=== PATIENT | female | born 1945 | race Caucasian/White ===

== ENCOUNTER 2024-03-24 09:21 | Inpatient (IN) | payer MEDICARE, MEDICAID ==
[~2024-03-24] VITALS: Ht 152.4 cm; Wt 55.0 kg
[2024-03-24 10:40] LABS: Basophils # (auto) 0 10 ^3/uL (0-0.2); Basophils % (auto) 0.3 % (0.0-2.0); Eosinophils # (auto) 0 10 ^3/uL (0-0.8); Eosinophils % (auto) 0.1 % (0.0-7.0); Hematocrit 33.7 % (36.0-46.0); Hemoglobin 11.6 g/dL (12.2-16.2); Lymphocytes # (auto) 0.6 10 ^3/uL (0.4-5.4); Lymphocytes % (auto) 4.6 % (10.0-50.0); Mean Corpuscular Hemoglobin 31.7 pg (28.0-32.0); Mean Corpuscular Hgb Conc. 34.3 g/dL (32.0-36.0); Mean Corpuscular Volume 92.4 fL (80.0-100.0); Monocytes # (auto) 0.7 10 ^3/uL (0-1.3); Monocytes % (auto) 5.3 % (0.0-12.0); Neutrophils # (auto) 11.6 10 ^3/uL (1.6-8.6); Neutrophils % (auto) 89.7 % (37.0-80.0); Red Blood Cells 3.65 10^6/uL (4.0-5.20); Red Cell Distribution Width 14.2 % (11.8-14.3); White Blood Cell 12.9 10^3/uL (4.4-10.8)
[2024-03-24 10:50] LABS: Chloride 109 mmol/L (98-107); Potassium 4.6 mmol/L (3.5-5.1); Sodium 140 mmol/L (136-145)
[2024-03-24 10:51] LABS: Anion Gap 8 (5-15); Calcium 9.6 mg/dL (8.7-10.4); Carbon Dioxide 23 mmol/L (20-30)
[2024-03-24 10:56] LABS: BUN/Creatinine Ratio 26.5 (10.0-20.0); Blood Urea Nitrogen 44 mg/dL (9-23); Glucose 112 mg/dL (74-106)
[2024-03-24] MEDS: ENOXAPARIN SOD 100 MG/1 ML SYRINGE SC ONE (13:52)
[2024-03-24 14:21] VITALS: PULSE 74; RESP 18; O2SAT 97
[2024-03-24] MEDS ORDERED: NITROGLYCERIN 0.4 MG SL TAB SL PRN (16:00)
[2024-03-24] MEDS ORDERED: DOCUSATE SOD 100 MG CAP PO PRN (16:00)
[2024-03-24] MEDS ORDERED: ENOXAPARIN SOD 100 MG/1 ML SYRINGE SC SCH (16:00)
[2024-03-24] MEDS ORDERED: ONDANSETRON HCL 4 MG/2 ML VIAL IV PRN (16:00)
[2024-03-24] MEDS: SODIUM CHLORIDE 0.9% 1,000 ML IV SCH (16:00)
[2024-03-24] MEDS ORDERED: MORPHINE SULFATE INJ 2 MG/ml SYRG IV PRN ×2 (16:00)
[2024-03-24] MEDS: SODIUM CHLORIDE 0.9% 1,000 ML IV ONE (17:22)
[2024-03-24 18:01] LABS: INR 1.05 (0.9-1.15); Prothrombin Time 11.1 sec (9.3-11.8)
[2024-03-24] MEDS: cefTRIAXone 1GM/50ML D5W 50 ML IV ONE (18:16)
[2024-03-24 20:00] VITALS: PULSE 70; RESP 18; O2SAT 98
[2024-03-24 20:09] VITALS: BP 145/56; PULSE 81; RESP 20; TEMP 98.1; O2SAT 95
[2024-03-24] MEDS ORDERED: LOSA100T25 PO (20:22)
[2024-03-24] MEDS ORDERED: ROSU10TA16 PO (20:22)
[2024-03-24] MEDS ORDERED: POM (20:31)
[2024-03-24 21:00] VITALS: BP 145/56; PULSE 70; RESP 19; TEMP 98.1; O2SAT 98
[2024-03-25 01:00] VITALS: BP 121/61; PULSE 77; RESP 18; TEMP 97.4; O2SAT 96
[2024-03-25 05:00] VITALS: BP 138/59; PULSE 88; RESP 18; TEMP 98.4; O2SAT 96
[2024-03-25 07:50] LABS: Basophils # (auto) 0 10 ^3/uL (0-0.2); Basophils % (auto) 0.2 % (0.0-2.0); Eosinophils # (auto) 0.3 10 ^3/uL (0-0.8); Eosinophils % (auto) 3.5 % (0.0-7.0); Hematocrit 33.3 % (36.0-46.0); Hemoglobin 11.3 g/dL (12.2-16.2); Lymphocytes # (auto) 0.9 10 ^3/uL (0.4-5.4); Lymphocytes % (auto) 10.9 % (10.0-50.0); Mean Corpuscular Hemoglobin 31.4 pg (28.0-32.0); Mean Corpuscular Hgb Conc. 33.9 g/dL (32.0-36.0); Mean Corpuscular Volume 92.4 fL (80.0-100.0); Monocytes # (auto) 0.5 10 ^3/uL (0-1.3); Monocytes % (auto) 5.6 % (0.0-12.0); Neutrophils # (auto) 6.8 10 ^3/uL (1.6-8.6); Neutrophils % (auto) 79.8 % (37.0-80.0); Nucleated Red Blood Cells % 0.1 %; Red Blood Cells 3.61 10^6/uL (4.0-5.20); Red Cell Distribution Width 14.3 % (11.8-14.3); White Blood Cell 8.5 10^3/uL (4.4-10.8)
[2024-03-25 08:00] VITALS: BP 130/67; PULSE 88; RESP 20; TEMP 97.6; O2SAT 96
[2024-03-25 08:12] LABS: Albumin 3.8 g/dL (3.2-4.8); Alkaline Phosphatase 69 U/L (46-116); Anion Gap 11 (5-15); Aspartate Aminotransferase 9 U/L (13-40); BUN/Creatinine Ratio 33.8 (10.0-20.0); Blood Urea Nitrogen 44 mg/dL (9-23); Calcium 8.9 mg/dL (8.7-10.4); Carbon Dioxide 19 mmol/L (20-30); Chloride 113 mmol/L (98-107); Glucose 102 mg/dL (74-106); Potassium 4.7 mmol/L (3.5-5.1); Sodium 143 mmol/L (136-145)
[2024-03-25 08:13] LABS: Alanine Aminotransferase < 9 U/L (7-40); Bilirubin, Total 0.3 mg/dL (0.2-1.0); Total Protein 6.1 g/dL (5.7-8.2)
[2024-03-25] MEDS: cefTRIAXone 1GM/50ML D5W 50 ML IV SCH (10:19)
[2024-03-25] MEDS: ENOXAPARIN SOD 100 MG/1 ML SYRINGE SC SCH (10:19)
[2024-03-25 10:25] LABS: Urine Bacteria FEW /hpf (None Seen); Urine Blood TRACE /uL (Negative); Urine Clarity Turbid (Clear); Urine Color Colorless (Yellow); Urine Protein, UAD Negative (Negative); Urine Specific Gravity 1.019 (1.001-1.035); Urine Urobilinogen Normal (Negative); Urine WBC 285 /hpf (0 - 5); Urine WBC Clumps PRESENT /hpf (None Seen)
[2024-03-25 10:34] LABS: Creatinine, Urine 107.02 mg/dL (30.0-125.0)
[2024-03-25] MEDS ORDERED: PROP40TA6 PO (11:39)
[2024-03-25 12:00] VITALS: BP 123/70; PULSE 81; RESP 18; TEMP 98.1; O2SAT 91
[2024-03-25] MEDS: PROPRANOLOL HCL 20 MG TAB PO SCH (15:32)
[2024-03-25 16:00] VITALS: BP 117/64; PULSE 77; RESP 18; TEMP 98; O2SAT 96
[2024-03-25] MEDS: ATORVASTATIN 20 MG TAB PO SCH (20:56)
[2024-03-25 21:00] VITALS: BP 108/63; PULSE 72; RESP 18; TEMP 98.4; O2SAT 97
[2024-03-26] VITALS (9 sets, daily range): BP systolic 119–146; BP diastolic 49–63; PULSE 56–65; RESP 15–20; TEMP 97.8–98.4; O2SAT 93–98
[2024-03-26 05:52] LABS: Basophils # (auto) 0 10 ^3/uL (0-0.2); Basophils % (auto) 0.6 % (0.0-2.0); Eosinophils # (auto) 0.5 10 ^3/uL (0-0.8); Eosinophils % (auto) 7.3 % (0.0-7.0); Hematocrit 31.5 % (36.0-46.0); Hemoglobin 10.7 g/dL (12.2-16.2); Lymphocytes # (auto) 0.9 10 ^3/uL (0.4-5.4); Lymphocytes % (auto) 13.1 % (10.0-50.0); Mean Corpuscular Hemoglobin 31.7 pg (28.0-32.0); Mean Corpuscular Hgb Conc. 34.1 g/dL (32.0-36.0); Mean Corpuscular Volume 92.9 fL (80.0-100.0); Monocytes # (auto) 0.5 10 ^3/uL (0-1.3); Monocytes % (auto) 7.4 % (0.0-12.0); Neutrophils # (auto) 5.1 10 ^3/uL (1.6-8.6); Neutrophils % (auto) 71.6 % (37.0-80.0); Red Blood Cells 3.39 10^6/uL (4.0-5.20); Red Cell Distribution Width 14.7 % (11.8-14.3); White Blood Cell 7.2 10^3/uL (4.4-10.8)
[2024-03-26 06:01] LABS: Chloride 113 mmol/L (98-107); Potassium 4.7 mmol/L (3.5-5.1); Sodium 142 mmol/L (136-145)
[2024-03-26 06:02] LABS: Anion Gap 5 (5-15); Calcium 8.6 mg/dL (8.7-10.4); Carbon Dioxide 24 mmol/L (20-30)
[2024-03-26 06:07] LABS: BUN/Creatinine Ratio 27.6 (10.0-20.0); Glucose 101 mg/dL (74-106)
[2024-03-26 06:08] LABS: Blood Urea Nitrogen 32 mg/dL (9-23)
[2024-03-26] MEDS ORDERED: APIX5TAB4 PO (14:42)
[2024-03-26] MEDS: ENOXAPARIN SOD 100 MG/1 ML SYRINGE SC SCH (21:36)
[2024-03-27 01:00] VITALS: BP 129/66; PULSE 54; RESP 20; TEMP 97.6; O2SAT 97
[2024-03-27 05:00] VITALS: BP 126/45; PULSE 62; RESP 20; TEMP 98.3; O2SAT 95
[2024-03-27 07:30] VITALS: PULSE 65; RESP 20; O2SAT 93
[2024-03-27] MEDS ORDERED: APIX5TAB4 PO (08:27)
[2024-03-27 09:00] VITALS: BP 132/52; PULSE 91; RESP 18; TEMP 97.9; O2SAT 90
[2024-03-27 13:00] VITALS: BP 141/62; PULSE 55; RESP 20; TEMP 97.6; O2SAT 94
[2024-03-27 17:00] VITALS: BP 137/61; PULSE 57; RESP 16; TEMP 97.8; O2SAT 98
== END 2024-03-27 18:15 | disposition home or self-care (01) | DRG 871 ==
LOC: ER 09:21 → OVERFLOW 15:59 → WEST WING 18:10
PROVIDERS: ADMIT Internal Medicine Geriatric Medicine; ATTEND Internal Medicine Geriatric Medicine
DX: A41.9 Sepsis, unspecified organism (principal); N17.0 Acute kidney failure with tubular necrosis; I82.432 Acute embolism and thrombosis of left popliteal vein; L03.116 Cellulitis of left lower limb; N39.0 Urinary tract infection, site not specified; I82.412 Acute embolism and thrombosis of left femoral vein; E78.5 Hyperlipidemia, unspecified; I12.9 Hypertensive chronic kidney disease with stage 1 through stage 4 chronic kidney disease, or unspecified chronic kidney disease; N18.30 Chronic kidney disease, stage 3 unspecified; R25.1 Tremor, unspecified; Z79.899 Other long term (current) drug therapy; Z86.73 Personal history of transient ischemic attack (TIA), and cerebral infarction without residual deficits
CPT/HCPCS: 36415; 71045; 80048; 80053; 81001; 82570; 83880; 84300; 85025; 85610; 87086; 93925; 93971; 96372; G0378

== ENCOUNTER 2024-11-15 01:45 | Inpatient (IN) | payer MEDICARE, MEDICAID ==
[~2024-11-15] VITALS: Ht 152.4 cm; Wt 56.0 kg
[2024-11-15] VITALS (13 sets, daily range): BP systolic 130–135; BP diastolic 53–115; PULSE 80–96; RESP 13–23; TEMP 97.9–99.4; O2SAT 95–99
[~2024-11-15 01:45] MED LIST: APIX5TAB4 PO; LOSA100T25 PO; POM; PROP40TA6 PO; ROSU10TA16 PO
[2024-11-15 02:23] LABS: Basophils # (auto) 0 10 ^3/uL (0-0.2); Basophils % (auto) 0.5 % (0.0-2.0); Eosinophils # (auto) 0.2 10 ^3/uL (0-0.8); Eosinophils % (auto) 3.2 % (0.0-7.0); Hemoglobin 13.2 g/dL (12.2-16.2); Lymphocytes # (auto) 0.6 10 ^3/uL (0.4-5.4); Lymphocytes % (auto) 8.5 % (10.0-50.0); Mean Corpuscular Hemoglobin 32.1 pg (28.0-32.0); Mean Corpuscular Hgb Conc. 33.9 g/dL (32.0-36.0); Mean Corpuscular Volume 94.5 fL (80.0-100.0); Monocytes # (auto) 0.4 10 ^3/uL (0-1.3); Monocytes % (auto) 5.8 % (0.0-12.0); Neutrophils # (auto) 6.2 10 ^3/uL (1.6-8.6); Platelet Count (auto) 184 10^3/uL (140-450); Red Blood Cells 4.13 10^6/uL (4.0-5.20); Red Cell Distribution Width 14.3 % (11.8-14.3); White Blood Cell 7.6 10^3/uL (4.4-10.8)
--- NOTE | 2024-11-15 02:39 | ED.PDOC ---
SOB-HPI HPI Comments 79 year old female brought in by daughter presents to the ED with a chief complaint of shortness of breath onset yesterday (11/14/24). Daughter states patient has PMHx HTN,, DVT, tremors. Patient began experiencing shortness of breath with cough and wheezes since yesterday, was given Robitussin with no improvement of symptoms. Upon ED arrival patient O2 was 86% RA, was placed 4L NC and O2 improved to 94%. Denies chest pain, chills, fevers, nausea, vomiting, diarrhea, abdominal pain, dizziness, dysuria. No other symptoms or modifying factors present at this time. Chief Complaint: Shortness of Breath Time Seen by MD: 02:15 Primary Care Provider: [facility] Pressley notes: Medications, Allergies Information Source: Patient, Relative Mode of Arrival: Wheelchair Severity: Moderate Duration: Since onset Context: At Rest PE Risk Factors: None History of: DVT/PE Prehospital treatment: None Modifying Factors: Nothing Associated Signs and Symptoms: Cough If cough with SOB: Non-Productive Vital Signs Vital Signs Date Time Temp Pulse Resp B/P (MAP) Pulse Ox O2 Delivery O2 Flow Rate FiO2 11/15/24 03:22 20 99 Nasal Cannula* 4 36 11/15/24 03:12 106 11/15/24 01:52 99.9 173/77 (109) Physical Exam General: Awake, alert and oriented. No acute distress. Skin: Skin in warm, dry and intact. Appropriate color for ethnicity. HEENT: The head is normocephalic and atraumatic. Conjunctivae are clear without exudates or hemorrhage. Sclera is non-icteric. EOM are intact. No signs of nystagmus. Eyelids are normal in appearance without swelling or lesions. Oral mucosa is pink and moist Neck: The neck is supple with normal range of motion. No JVD. Cardiac: Tachycardia, regular rhythm No murmurs, gallops, or rubs are a uscultated. Respiratory: No signs of respiratory distress. Positive expiratory wheezes. Abdominal: Abdomen is soft, non-tender without distention. Bowel sounds are present and normoactive in all four quadrants. Extremities: Upper and lower extremities are atraumatic in appearance without deformity or edema. Neurological: The patient is awake, alert and oriented to person, place, and time with normal speech. Speech is clear. There is no facial asymmetry. Psychiatric: Appropriate mood and affect. Good judgement and insight. No visual or auditory hallucinations. Review of Systems: REVIEW OF SYSTEMS: No fever, no chills, or fatigue HEENT: No sore throat, no earache, no congestion, no neck pain. Cardiac: No chest pain. No palpitations. Lungs: No shortness of breath, no cough. GI: No nausea, no vomiting, no diarrhea, no constipation, no abdominal pain : No dysuria, frequency, or urgency. No hematuria. Musculoskeletal: No joint pain , no joint swelling, no extremity edema. Skin: No rash, no itching. 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 Was a procedure done?: No Differential Dx Differential Diagnosis: Other Comments Differential diagnoses considered includebut arenot limited to acute Bronchitis, Asthma, COPD, Pneumothorax, PE, CHF, Pulmonary HTN, Anemia, CO Poisoning, Methemoglobinemia, Hyperventilation, Metabolic Acidosis, Pulmonary Edema, Pneumonia, ACS, Pericardial Tamponade, Anxiety, other X-Ray, Labs, Meds, VS Vital Signs Date Time Temp Pulse Resp B/P (MAP) Pulse Ox O2 Delivery O2 Flow Rate FiO2 11/15/24 03:22 20 99 Nasal Cannula* 4 36 11/15/24 03:12 106 11/15/24 02:04 113 11/15/24 01:52 22 86 Room Air* 0 21 11/15/24 01:52 99.9 62 22 173/77 (109) 86 Lab Test 11/15/24 02:29 11/15/24 02:25 11/15/24 02:09 Range/Units Blood Gas Specimen Type Arterial Blood Gas Sample Site Left radial Blood Gas Patient Temperature 37.0 Arterial Blood Date Drawn [id number] Arterial Blood pH 7.411 7.350-7.450 Arterial Blood Partial Pressure CO2 33.4 32.0-45.0 mmHg Arterial Blood Partial Pressure O2 88.8 83.0-108.0 mmHg Arterial Blood HCO3 20.7 L 21.0-28.0 mmol/L Arterial Blood Oxygen Saturation 96.7 94.0-98.0 % Arterial Blood Base Excess -3.0 L -2.0-3.0 mmol/L Arterial Blood Oxyhemoglobin 95.5 94.0-98.0 % Arterial Blood Carboxyhemoglobin 0.7 0.5-1.5 % Arterial Blood Methemoglobin 0.5 0.0-1.5 % Noel Test Modified Blood Gas Total Hemoglobin 13.70 12.0-16.0 g/dL Blood Gas Liter Flow 4.00 Blood Gas Modality Nasal cannula FiO2 % 36.0 Lactic Acid Level 1.8 0.4-2.0 mmol/L White Blood Count 7.6 4.4-10.8 10^3/uL Red Blood Count 4.13 4.0-5.20 10^6/uL Hemoglobin 13.2 12.2-16.2 g/dL Hematocrit 39.0 36.0-46.0 % Mean Corpuscular Volume 94.5 80.0-100.0 fL Mean Corpuscular Hemoglobin 32.1 H 28.0-32.0 pg Mean Corpuscular Hemoglobin Concent 33.9 32.0-36.0 g/dL Red Cell Distribution Width 14.3 11.8-14.3 % Platelet Count 184 140-450 10^3/uL Mean Platelet Volume 8.0 6.9-10.8 fL Neutrophils (%) (Auto) 82.0 H 37.0-80.0 % Lymphocytes (%) (Auto) 8.5 L 10.0-50.0 % Monocytes (%) (Auto) 5.8 0.0-12.0 % Eosinophils (%) (Auto) 3.2 0.0-7.0 % Basophils (%) (Auto) 0.5 0.0-2.0 % Neutrophils # (Auto) 6.2 1.6-8.6 10 ^3/uL Lymphocytes # (Auto) 0.6 0.4-5.4 10 ^3/uL Monocytes # (Auto) 0.4 0-1.3 10 ^3/uL Eosinophils # (Auto) 0.2 0-0.8 10 ^3/uL Basophils # (Auto) 0 0-0.2 10 ^3/uL Nucleated Red Blood Cells 0.0 % D-Dimer, Quantitative 0.73 H 0.0-0.49 mg/L FEU Sodium Level 138 136-145 mmol/L Potassium Level 3.9 3.5-5.1 mmol/L Chloride Level 106 98-107 mmol/L Carbon Dioxide Level 21 20-31 mmol/L Anion Gap 11 5-15 Blood Urea Nitrogen 18 9-23 mg/dL Creatinine 1.22 H 0.550-1.02 mg/dL Glomerular Filtration Rate Calc 45 >90 mL/min BUN/Creatinine Ratio 14.8 10.0-20.0 Serum Glucose 119 H 74-106 mg/dL Calcium Level 9.5 8.7-10.4 mg/dL Total Bilirubin 0.5 0.2-1.0 mg/dL Aspartate Amino Transferase (AST) 21 13-40 U/L Alanine Aminotransferase (ALT) 12 7-40 U/L Alkaline Phosphatase 75 46-116 U/L Troponin I High Sensitivity 32 </=34 ng/L B-Type Natriuretic Peptide 97.42 0-100 pg/mL Total Protein 7.1 5.7-8.2 g/dL Albumin 4.5 3.2-4.8 g/dL Current Medications Medications (Trade) Dose Ordered Sig/Christelle Route Start Time Stop Time Status Last Admin Albuterol (Ventolin Medneb) 2.5 mg ONCE ONCE NEB 11/15/24 03:15 11/15/24 03:16 DC 11/15/24 03:22 [place] [address] Ph: [phone] DIAGNOSTIC IMAGING Diagnostic Imaging Report : [id number] Signed PATIENT: ANGIE MENDOZAT: [id number] UNIT: [id number] : 1945 LOC: ER ROOM / BED: / AGE / SEX: 79 / F ADM STATUS: REG ER SERVICE 0 ORDERING PHYSICIAN: MORENA FARRIS MD PROCEDURE(s): CXR1 - CHEST XRAY 1 VIEW REASON: Shortness of breath ORDER NUMBER(s): [id number], ACCESSION NUMBER(s): [id number] CHEST RADIOGRAPH Indication: Shortness of breath Technique: Single frontal view of the chest was obtained Comparison: XY CHEST XRAY 1 VIEW on DOS: 03/24/24 IMPRESSION: Heart appears normal in size. The lungs appear clear without focal airspace opacity, effusion, or pneumothorax. Calcified granuloma left upper lobe. ATED BY: MECHELLE ZAMORANO MD DICTATED DATE/TIME: 11/15/24331 SIGNED BY: MECHELLE ZAMORANO MD SIGNED DATE/TIME: 11/15/24331 CC: Time of 1ST Reevaluation: 02:45 Reevaluation 1ST: Unchanged Patient Education/Counseling: Diagnosis, Treatment, Prognosis Family Education/Counseling: Diagnosis, Treatment, Prognosis Departure 1 Departure Time of Disposition: 03:58 Impression: Primary Impression: Hypoxia Additional Impressions: Acute bronchitis PAUL (acute kidney injury) Disposition: ADMITTED INPATIENT Condition: Stable Comments Patient is stabilized in the emergency department. Patient admitted for further treatment, evaluation and monitoring. Critical Care Note Critical Care Time?: No Stability Stability form required: No Heart Score Heart Score: Heart Score Response (Comments) Value History N/A 0 EKG N/A 0 Age N/A 0 Risk Factors N/A 0 Troponin N/A 0 Total 0 I personally scribed for MORENA FARRIS MD ([email or web address]) on 11/15/24 at 02:39. Electronically submitted by Cyndi Munguia ([email or web address]). I personally scribed for MORENA FARRIS MD ([email or web address]) on 11/15/24 at 03:38. Electronically submitted by Cyndi Munguia ([email or web address]). MORENA FARRIS MD Nov 15, 2024 02:39
[2024-11-15 02:56] LABS: Alanine Aminotransferase 12 U/L (7-40); Albumin 4.5 g/dL (3.2-4.8); Alkaline Phosphatase 75 U/L (46-116); Anion Gap 11 (5-15); Aspartate Aminotransferase 21 U/L (13-40); BUN/Creatinine Ratio 14.8 (10.0-20.0); Bilirubin, Total 0.5 mg/dL (0.2-1.0); Blood Urea Nitrogen 18 mg/dL (9-23); Calcium 9.5 mg/dL (8.7-10.4); Carbon Dioxide 21 mmol/L (20-31); Chloride 106 mmol/L (98-107); Potassium 3.9 mmol/L (3.5-5.1); Sodium 138 mmol/L (136-145); Total Protein 7.1 g/dL (5.7-8.2)
[2024-11-15 03:11] LABS: Glucose 119 mg/dL (74-106)
[2024-11-15] MEDS: ALBUTEROL SULF 2.5 MG/0.5ML(0.5%) NEB SOLN NEB ONE (03:22)
--- NOTE | 2024-11-15 03:35 | DVH ---
CHEST RADIOGRAPH Indication: Shortness of breath Technique: Single frontal view of the chest was obtained Comparison: XY CHEST XRAY 1 VIEW on DOS: 03/24/24 IMPRESSION: Heart appears normal in size. The lungs appear clear without focal airspace opacity, effusion, or pn eumothorax. Calcified granuloma left upper lobe.
[2024-11-15] MEDS: IOHEXOL 350 MG/ML 100ML IJ ONE (03:49)
[2024-11-15] MEDS ORDERED: ALBUTEROL SULF 2.5 MG/0.5ML(0.5%) NEB SOLN NEB PRN (04:15)
[2024-11-15] MEDS ORDERED: NITROGLYCERIN 0.4 MG SL TAB SL PRN (04:15)
[2024-11-15] MEDS ORDERED: ONDANSETRON HCL 4 MG/2 ML VIAL IV PRN (04:15)
[2024-11-15] MEDS ORDERED: ACETAMINOPHEN 325 MG TAB PO PRN (04:15)
[2024-11-15] MEDS ORDERED: MORPHINE SULFATE INJ 2 MG/ml SYRG IV PRN (04:15)
[2024-11-15] MEDS: SODIUM CHLORIDE 0.9% 1,000 ML IV ONE (04:18)
[2024-11-15] MEDS: cefTRIAXone 1GM/50ML D5W 50 ML IV ONE (04:19)
[2024-11-15] MEDS: methylPREDNISolone SOD SUCC 40 MG/ML VL IV SCH (04:50)
[2024-11-15] MEDS: AZITHROMYCIN 500MG/ 250ML 250 ML IV ONE (04:51)
[2024-11-15 04:54] LABS: INR 0.97 (0.9-1.15); Partial Thromboplastin Time 25.8 SEC (24.5-34.5); Prothrombin Time 10.3 sec (9.3-11.8)
--- NOTE | 2024-11-15 05:13 | DVHHP2 ---
History of Present Illness Reason for Visit: Shortness for breath History of Present Illness 79-year-old female presents for evaluation of shortness for breath. Patient reports a one day history of severe shortness for breath with associated nonproductive cough. Denies fever or chills. No chest pain or palpitations. No other acute complaints. Past Medical History Hypertension, dyslipidemia and DVT Past Surgical History Family History Noncontributory Smoke: No ALCOHOL: none Drugs: None Lives: with Family Review of Systems Review of Systems Review of systems are currently negative otherwise addressed in HPI. Allergies: Coded Allergies: NO KNOWN ALLERGIES (Unverified , 03/24/24) Medications Current Medications Medications Dose Ordered Sig/Christelle Route Start Time Stop Time Status Last Admin Dose Admin Albuterol 2.5 mg Q6HPRN PRN NEB 11/15/24 04:15 Azithromycin 250 ml @ 125 mls/hr DAILY IV 11/16/24 10:00 Albuterol 2.5 mg Q6HPRN PRN NEB 11/15/24 04:15 UNV Methylprednisolone Sodium Succinate 40 mg BID IV 11/15/24 04:15 11/15/24 04:50 40 MG Losartan Potassium 50 mg DAILY PO 11/15/24 10:00 Hydrochlorothiazide 12.5 mg DAILY PO 11/15/24 10:00 Apixaban 5 mg BID PO 11/15/24 10:00 Atorvastatin Calcium 10 mg HS PO 11/15/24 22:00 Guaifenesin/ Dextromethorphan 10 ml Q4HP PRN PO 11/15/24 04:15 Ondansetron HCl 4 mg Q4HP PRN IV 11/15/24 04:15 Acetaminophen 650 mg Q6HP PRN PO 11/15/24 04:15 Nitroglycerin 0.4 mg Q5MINP PRN SL 11/15/24 04:15 Morphine Sulfate 2 mg Q30M PRN IV 11/15/24 04:15 Ipratropium [place] 0.5 mg Q6HPRN PRN NEB 11/15/24 06:00 Exam Vital Signs Vital Signs Date Time Temp Pulse Resp B/P (MAP) Pulse Ox O2 Delivery O2 Flow Rate FiO2 11/15/24 04:21 98 Nasal Cannula 4.0 11/15/24 04:21 36 11/15/24 03:22 20 11/15/24 03:12 106 11/15/24 01:52 99.9 173/77 (109) Exam Gen: 79-year-old female in mild distress Skin: Warm, dry, normal color and texture, no rash. HEENT: Normocephalic atraumatic, mucous membranes moist and pink. Neck: Cervical and supraclavicular nodes normal without enlargement, trachea is midline, thyroid gland is normal without masses. Pulmonary: Bilateral coarse crackles Cardiac: Regular rate and rhythm. No murmur Abdomen: Soft, nontender, nondistended, bowel sounds present all 4 quadrants, no guarding, no rigidity, no organomegaly. Extremities: No cyanosis, clubbing, no edema Neuro: Cranial nerves II through XII grossly intact, normal affect and speech, no focal motor deficits. Labs/Xrays ORDERING PHYSICIAN: MORENA FARRIS MD PROCEDURE(s): CXR1 - CHEST XRAY 1 VIEW REASON: Shortness of breath ORDER NUMBER(s): [id number], ACCESSION NUMBER(s): [id number] CHEST RADIOGRAPH Indication: Shortness of breath Technique: Single frontal view of the chest was obtained Comparison: XY CHEST XRAY 1 VIEW on DOS: 03/24/24 IMPRESSION: Heart appears normal in size. The lungs appear clear without focal airspace opacity, effusion, or pneumothorax. Calcified granuloma left upper lobe. Labs Test 11/15/24 05:02 11/15/24 02:29 11/15/24 02:25 11/15/24 02:09 Range/Units Blood Gas Specimen Type Arterial Blood Gas Sample Site Left radial Blood Gas Patient Temperature 37.0 Arterial Blood Date Drawn [id number] Arterial Blood pH 7.411 7.350-7.450 Arterial Blood Partial Pressure CO2 33.4 32.0-45.0 mmHg Arterial Blood Partial Pressure O2 88.8 83.0-108.0 mmHg Arterial Blood HCO3 20.7 L 21.0-28.0 mmol/L Arterial Blood Oxygen Saturation 96.7 94.0-98.0 % Arterial Blood Base Excess -3.0 L -2.0-3.0 mmol/L Arterial Blood Oxyhemoglobin 95.5 94.0-98.0 % Arterial Blood Carboxyhemoglobin 0.7 0.5-1.5 % Arterial Blood Methemoglobin 0.5 0.0-1.5 % Noel Test Modified Blood Gas Total Hemoglobin 13.70 12.0-16.0 g/dL Blood Gas Liter Flow 4.00 Blood Gas Modality Nasal cannula FiO2 % 36.0 Lactic Acid Level 1.8 0.4-2.0 mmol/L White Blood Count 7.6 4.4-10.8 10^3/uL Red Blood Count 4.13 4.0-5.20 10^6/uL Hemoglobin 13.2 12.2-16.2 g/dL Hematocrit 39.0 36.0-46.0 % Mean Corpuscular Volume 94.5 80.0-100.0 fL Mean Corpuscular Hemoglobin 32.1 H 28.0-32.0 pg Mean Corpuscular Hemoglobin Concent 33.9 32.0-36.0 g/dL Red Cell Distribution Width 14.3 11.8-14.3 % Platelet Count 184 140-450 10^3/uL Mean Platelet Volume 8.0 6.9-10.8 fL Neutrophils (%) (Auto) 82.0 H 37.0-80.0 % Lymphocytes (%) (Auto) 8.5 L 10.0-50.0 % Monocytes (%) (Auto) 5.8 0.0-12.0 % Eosinophils (%) (Auto) 3.2 0.0-7.0 % Basophils (%) (Auto) 0.5 0.0-2.0 % Neutrophils # (Auto) 6.2 1.6-8.6 10 ^3/uL Lymphocytes # (Auto) 0.6 0.4-5.4 10 ^3/uL Monocytes # (Auto) 0.4 0-1.3 10 ^3/uL Eosinophils # (Auto) 0.2 0-0.8 10 ^3/uL Basophils # (Auto) 0 0-0.2 10 ^3/uL Nucleated Red Blood Cells 0.0 % Prothrombin Time 10.3 9.3-11.8 sec Prothrombin Time INR 0.97 0.9-1.15 Activated Partial Thromboplast Time 25.8 24.5-34.5 SEC D-Dimer, Quantitative 0.73 H 0.0-0.49 mg/L FEU Total Bilirubin 0.5 0.2-1.0 mg/dL Aspartate Amino Transferase (AST) 21 13-40 U/L Alanine Aminotransferase (ALT) 12 7-40 U/L Alkaline Phosphatase 75 46-116 U/L Troponin I High Sensitivity 32 </=34 ng/L B-Type Natriuretic Peptide 97.42 0-100 pg/mL Total Protein 7.1 5.7-8.2 g/dL Albumin 4.5 3.2-4.8 g/dL Assessment/Plan Assessment/Plan Assessment Acute hypoxic respiratory failure Acute pneumonitis Hypertension Chronic kidney disease Elevated D-dimer Plan Admit the patient to telemetry to the hospitalist Vale mckeon CT angio pending Resume home medications Continue treatment per orders. Plan discussed with: Patient My Orders Orders - ABRIL TAYLOR Procedure Category Date Status Time Ct Angio Chest CT 11/15/24 Taken Contrast 04:11 Albuterol Medneb PHA 11/15/24 In Process (Ventolin Medneb) 04:15 Methylprednisolone PHA 11/15/24 In Process Sod Succ (Solu Medrol 04:15 Losartan Tablet PHA 11/15/24 In Process (Cozaar Tablet) 10:00 Hydrochlorothiazide PHA 11/15/24 In Process Tablet (Hydrochlorot 10:00 Apixaban (Eliquis) PHA 11/15/24 In Process 10:00 Atorvastatin (Lipitor) PHA 11/15/24 In Process 22:00 Basic Metabolic Panel LAB 11/15/24 In Process 04:11 Guaifenesin-Dextromet PHA 11/15/24 In Process Liquid (Robitussin 04:15 Admit ADMIT 11/15/24 Transmitted 04:11 Renal DIET 11/15/24 Transmitted Standard(2gna,3gk,Lopho) Breakfast Ondansetron Hcl PHA 11/15/24 In Process (Zofran) 04:15 Complete Blood Count LAB 11/16/24 Verified 04:00 Condition: Fair JUDY 11/15/24 In Process 04:11 Acetaminophen Tablet PHA 11/15/24 In Process (Tylenol Tablet) 04:15 Bedrest With Bathroom JUDY 11/15/24 In Process Privileg 04:11 Nitroglycerin PHA 11/15/24 In Process Sublingual (Ntrostat 04:15 Morphine Sulfate PHA 11/15/24 In Process Injection 04:15 Stat Ekg For Chest JUDY 11/15/24 In Process Pain 04:11 Notify Of Changes JUDY 11/15/24 In Process From Base 04:11 Golf Cart Mechanic For JUDY 11/15/24 In Process 24 Hours 04:11 Emergency Dysrhythmia JUDY 11/15/24 In Process Protocol 04:11 Rhythm Strips Once JUDY 11/15/24 In Process Every Shift 04:11 Oxygen By Nasal RT 11/15/24 Transmitted Cannula 04:11 Ipratropium Medneb PHA 11/15/24 In Process (Atrovent Medneb) 06:00 Azithromycin 500mg/ PHA 11/16/24 In Process 250ml (Zithromax 50 10:00 Date of Service: Nov 15, 2024 Billing Provider: ABRIL TAYLOR Common Visit Codes: [id number] INP/OBS CARE (HIGH) ABRIL TAYLOR Nov 15, 2024 05:13
--- NOTE | 2024-11-15 05:15 | DVH ---
CTA Chest with intravenous contrast INDICATION: r/o pe COMPARISON: None TECHNIQUE: Multidetector spiral CTA of the chest was performed of the chest with intravenous contrast . PULMONARY ANGIOGRAPHY PROTOCOL was utilized using a bolus-tracking technique centered on the main p ulmonary artery. Axial, coronal and sagittal multiplanar and MIP reformats were performed. Radiation Dose : 1. Chest: CTDI volume is 5.1 mGy. Dose-length product is 204 mGy*cm The dose indicators for CT are the volume Computed Tomography (CT) Dose Index (CTDIvol) and the Dose Length Product (DLP), and are measured in units of mGy and mGy-cm, respectively. These indicators are not patient dose, but values generated from the CT scanner acquisition factors. The report includes radiation exposure data for exposures received during this examination. Findings: Pulmonary artery: No pulmonary embolism Lower neck: Normal thyroid. Lungs: No focal consolidation, pleural effusion or pneumothorax. Calcified granuloma in the left uppe r lobe. Heart/Vascular Structures: Borderline cardiomegaly. Lymph Nodes: No adenopathy Pleura: No pleural effusion or significant pneumothorax. Musculoskeletal: No acute osseous abnormality. Soft tissues: Normal. Upper abdomen: Small hiatal hernia. IMPRESSION: Limited examination secondary to patient motion artifact. No pulmonary embolism. No acute thoracic finding.
[2024-11-15 05:28] LABS: Potassium 4.1 mmol/L (3.5-5.1); Sodium 137 mmol/L (136-145)
[2024-11-15 05:29] LABS: Anion Gap 8 (5-15); Carbon Dioxide 21 mmol/L (20-31)
[2024-11-15 05:34] LABS: Blood Urea Nitrogen 17 mg/dL (9-23); Calcium 8.2 mg/dL (8.7-10.4); Chloride 108 mmol/L (98-107); Glucose 123 mg/dL (74-106)
[2024-11-15] MEDS: IPRATROPIUM BROM 0.5 MG/2.5ML INH SOL NEB PRN (07:23)
[2024-11-15] MEDS: ALBUTEROL SULF 2.5 MG/0.5ML(0.5%) NEB SOLN NEB PRN (07:23)
[2024-11-15 07:52] LABS: COVID19 ANTIGEN SOFIA FIA NEGATIVE (NEGATIVE); Rapid Influenza A Negative (Negative); Rapid Influenza B Negative (Negative)
[2024-11-15] MEDS: APIXABAN 5 MG TAB PO SCH (10:30)
[2024-11-15] MEDS: LOSARTAN POTASSIUM 50 MG TAB PO SCH (10:30)
[2024-11-15] MEDS: hydroCHLOROthiazide 25 MG TAB PO SCH (10:39)
--- NOTE | 2024-11-15 15:44 | DVHPN2 ---
Subjective Patient continues to have uncontrolled cough Reviewed: Care Plan, H&P, Labs, Medications Changes from previous H/P or p: No Changes General: Per HPI Objective Vitals Vital Signs Date Time Temp Pulse Resp B/P (MAP) Pulse Ox O2 Delivery O2 Flow Rate FiO2 11/15/24 14:06 70 13 131/62 (85) 100 11/15/24 12:00 99.4 99.4 11/15/24 08:00 Nasal Cannula* 2 28 Intake/Output Intake and Output 11/15/24 07:00 Intake Total 1300 ml Balance 1300 ml Intake IV Total 1300 ml General Appearance: Alert, Oriented X3, Cooperative, No acute distress, mild distress HEENT: Atraumatic, PERRLA Lungs: Clear to auscultation, Normal air movement Cardiovascular: Normal S1, Normal S2 Abdomen: Normal bowel sounds, Soft, No tenderness Back: Flank Tenderness, Midline Tenderness Musculoskeletal: Normal sensory function Extremities: No clubbing, No cyanosis, No edema, Normal pulses, No tenderness/swelling Neuro: Normal gait, Normal speech Skin: Dry, Intact Psych/Mental Status: Mental status NL, Mood NL Medications Current Medications Medications Dose Ordered Sig/Christelle Route Start Time Stop Time Status Last Admin Dose Admin Albuterol 2.5 mg Q6HPRN PRN NEB 11/15/24 04:15 11/15/24 07:23 2.5 MG Azithromycin 250 ml @ 125 mls/hr DAILY IV 11/16/24 10:00 Albuterol 2.5 mg Q6HPRN PRN NEB 11/15/24 04:15 UNV Methylprednisolone Sodium Succinate 40 mg BID IV 11/15/24 04:15 11/15/24 04:50 40 MG Losartan Potassium 50 mg DAILY PO 11/15/24 10:00 11/15/24 10:30 50 MG Hydrochlorothiazide 12.5 mg DAILY PO 11/15/24 10:00 11/15/24 10:39 12.5 MG Apixaban 5 mg BID PO 11/15/24 10:00 11/15/24 10:30 5 MG Atorvastatin Calcium 10 mg HS PO 11/15/24 22:00 Guaifenesin/ Dextromethorphan 10 ml Q4HP PRN PO 11/15/24 04:15 Ondansetron HCl 4 mg Q4HP PRN IV 11/15/24 04:15 Acetaminophen 650 mg Q6HP PRN PO 11/15/24 04:15 Nitroglycerin 0.4 mg Q5MINP PRN SL 11/15/24 04:15 Morphine Sulfate 2 mg Q30M PRN IV 11/15/24 04:15 Ipratropium [place] 0.5 mg Q6HPRN PRN NEB 11/15/24 06:00 11/15/24 07:23 0.5 MG Laboratory Results Laboratory Tests 11/15/24 02:09 11/15/24 05:02 Chemistry Test 11/15/24 02:09 11/15/24 05:02 Albumin 4.5 g/dL (3.2-4.8) Calcium Level 9.5 mg/dL (8.7-10.4) 8.2 mg/dL (8.7-10.4) L Total Protein 7.1 g/dL (5.7-8.2) Coagulation Test 11/15/24 02:09 Prothrombin Time 10.3 sec (9.3-11.8) Prothrombin Time INR 0.97 (0.9-1.15) Activated Partial Thromboplast Time 25.8 SEC (24.5-34.5) D-Dimer, Quantitative 0.73 mg/L FEU (0.0-0.49) H Cardiac Markers Test 11/15/24 02:09 B-Type Natriuretic Peptide 97.42 pg/mL (0-100) LFT Test 11/15/24 02:09 Alanine Aminotransferase (ALT) 12 U/L (7-40) Alkaline Phosphatase 75 U/L (46-116) Aspartate Amino Transferase (AST) 21 U/L (13-40) Total Bilirubin 0.5 mg/dL (0.2-1.0) Blood Gas Results Test 11/15/24 02:29 Arterial Blood pH 7.411 (7.350-7.450) FiO2 % 36.0 Labs and/or images reviewed: Labs reviewed by me, Image(s) reviewed by me Assessment/Plan Assessment/Plan Impression: -AFib with RVR -acute hypoxic respiratory failure -essential tremors -PE ruled out -history of DVT -chronic kidney disease stage IIIA -dyslipidemia Plan: -echocardiogram -antitussives -restart propranolol -continue Eliquis -continue antibiotic therapy with Rocephin and azithromycin -bronchodilators -repeat labs in a.m. Total time spent with patient discussing and formulating plan of care: 35 minutes. This medical document was created using an electronic medical record system with [employer] dictation system. Although this document has been carefully reviewed, there may still be some phonetic and typographical errors. These areas are purely typographical due to imperfections of the software programs, and do not reflect any compromise in the patient's medical care. Plan discussed with: Patient, Other (RN) My Orders Orders - LANCE KING NP Procedure Category Date Status Time Albuterol Medneb PHA 11/15/24 Logged (Ventolin Medneb) 18:00 Ipratropium Medneb PHA 11/15/24 Logged (Atrovent Medneb) 18:00 Erythrocyte LAB 11/16/24 Verified Sedimentation Rate 04:00 C-Reactive Protein LAB 11/16/24 Verified 04:00 Ceftriaxone Ivpb PHA 11/16/24 Transmitted Rocephin 09:00 Echo 2d Mode Cardiac US 11/15/24 Logged DOP 15:32 Communication Order ORDERS 11/15/24 Transmitted 15:32 Propranolol Hcl PHA 11/15/24 Transmitted Tablet (Inderal 22:00 Date of Service: Nov 15, 2024 Billing Provider: LANCE KING NP Common Visit Codes: [id number] INP/OBS CARE(HIGH) LANCE KING NP Nov 15, 2024 15:44
[2024-11-15] MEDS: IPRATROPIUM BROM 0.5 MG/2.5ML INH SOL NEB SCH (18:48)
[2024-11-15] MEDS: ALBUTEROL SULF 2.5 MG/0.5ML(0.5%) NEB SOLN NEB SCH (18:48)
[2024-11-15] MEDS: guaiFENesin-DM 100/10mg/5ml SYR PO PRN (21:46)
[2024-11-15] MEDS: ATORVASTATIN 20 MG TAB PO SCH (21:47)
[2024-11-15] MEDS: PROPRANOLOL HCL 20 MG TAB PO SCH (22:03)
[2024-11-16] VITALS (14 sets, daily range): BP systolic 100–133; BP diastolic 40–70; PULSE 0–94; RESP 15–20; TEMP 98.3–98.9; O2SAT 95–100
[2024-11-16 06:25] LABS: Basophils # (auto) 0 10 ^3/uL (0-0.2); Basophils % (auto) 0.1 % (0.0-2.0); Eosinophils # (auto) 0 10 ^3/uL (0-0.8); Eosinophils % (auto) 0.1 % (0.0-7.0); Hematocrit 35.9 % (36.0-46.0); Hemoglobin 12.5 g/dL (12.2-16.2); Lymphocytes # (auto) 0.2 10 ^3/uL (0.4-5.4); Lymphocytes % (auto) 6.9 % (10.0-50.0); Mean Corpuscular Hemoglobin 32.3 pg (28.0-32.0); Mean Corpuscular Hgb Conc. 34.9 g/dL (32.0-36.0); Mean Corpuscular Volume 92.6 fL (80.0-100.0); Monocytes # (auto) 0.1 10 ^3/uL (0-1.3); Monocytes % (auto) 2.4 % (0.0-12.0); Neutrophils # (auto) 3.1 10 ^3/uL (1.6-8.6); Neutrophils % (auto) 90.5 % (37.0-80.0); Platelet Count (auto) 170 10^3/uL (140-450); Red Blood Cells 3.88 10^6/uL (4.0-5.20); Red Cell Distribution Width 13.8 % (11.8-14.3); White Blood Cell 3.5 10^3/uL (4.4-10.8)
[2024-11-16 06:49] LABS: Erythrocyte Sedimentation Rate 39 mm/hr (0-20)
[2024-11-16] MEDS: cefTRIAXone 1GM/50ML D5W 50 ML IV SCH (08:46)
[2024-11-16] MEDS: methylPREDNISolone SOD SUCC 125 MG/2 ML VL IV SCH (09:04)
[2024-11-16] MEDS: AZITHROMYCIN 500MG/ 250ML 250 ML IV SCH (10:20)
--- NOTE | 2024-11-16 13:16 | ECG ---
[facility] Test Date: 2024-11-15 Test Time: 03:12:45 Pat Name: ANGIE MENDOZA Department: ER Room: 0290T A Gender: F [employer] Designer: ER : 1945 Requested By: MORENA FARRIS Order Number: [id number] Reading MD: Edwin Rodriguez Measurements Intervals [place] Rate: 106 P: 71 [place]: 148 QRS: 70 QRSD: 113 T: -13 QT: 357 QTc: 475 Interpretive Statements Sinus tachycardia Multiform ventricular premature complexes LVH with secondary repolarization abnormality Anterior infarct, old Electronically Signed On 11-17-2024 19:08:47 PDT by Edwin Rodriguez Please click the below link to view image of tracing.
--- NOTE | 2024-11-16 13:19 | DVHPN2 ---
Subjective Patient reports that her cough has improved Reviewed: Care Plan, H&P, Labs, Medications Changes from previous H/P or p: Changes General: Per HPI Objective Vitals Vital Signs Date Time Temp Pulse Resp B/P (MAP) Pulse Ox O2 Delivery O2 Flow Rate FiO2 11/16/24 11:45 62 18 100 11/16/24 11:39 Nasal Cannula* 2 28 11/16/24 08:55 98.3 133/70 (91) 98.3 Intake/Output Intake and Output 11/16/24 07:00 Intake Total 200 ml Output Total 200 ml Balance 0 ml Intake Oral 200 ml Output Urine Total 200 ml General Appearance: Alert, Oriented X3, Cooperative, No acute distress, mild distress HEENT: Atraumatic, PERRLA Lungs: Clear to auscultation, Normal air movement Cardiovascular: Normal S1, Normal S2 Abdomen: Normal bowel sounds, Soft, No tenderness, No hepatospenomegaly Back: Flank Tenderness, Midline Tenderness Musculoskeletal: Normal sensory function Extremities: No clubbing, No cyanosis, No edema, Normal pulses, No tenderness/swelling Neuro: Normal gait, Normal speech, Cranial nerves 3-12 NL, Other (Tremors) Skin: Dry, Intact Psych/Mental Status: Mental status NL, Mood NL Medications Current Medications Medications Dose Ordered Sig/Christelle Route Start Time Stop Time Status Last Admin Dose Admin Azithromycin 250 ml @ 125 mls/hr DAILY IV 11/16/24 10:00 11/16/24 10:20 125 MLS/HR Albuterol 2.5 mg Q6HPRN PRN NEB 11/15/24 04:15 UNV Losartan Potassium 50 mg DAILY PO 11/15/24 10:00 11/16/24 08:47 50 MG Hydrochlorothiazide 12.5 mg DAILY PO 11/15/24 10:00 11/16/24 08:47 12.5 MG Apixaban 5 mg BID PO 11/15/24 10:00 11/16/24 08:48 5 MG Atorvastatin Calcium 10 mg HS PO 11/15/24 22:00 11/15/24 21:47 10 MG Guaifenesin/ Dextromethorphan 10 ml Q4HP PRN PO 11/15/24 04:15 11/15/24 21:46 10 ML Ondansetron HCl 4 mg Q4HP PRN IV 11/15/24 04:15 Acetaminophen 650 mg Q6HP PRN PO 11/15/24 04:15 Nitroglycerin 0.4 mg Q5MINP PRN SL 11/15/24 04:15 Morphine Sulfate 2 mg Q30M PRN IV 11/15/24 04:15 Albuterol 2.5 mg Q6HWA NEB 11/15/24 18:00 11/16/24 11:39 2.5 MG Ipratropium [place] 0.5 mg Q6HWA NEB 11/15/24 18:00 11/16/24 11:39 0.5 MG Ceftriaxone Sodium 50 ml @ 100 mls/hr DAILY@09 IV 11/16/24 09:00 11/16/24 08:46 100 MLS/HR Propranolol HCl 20 mg TID PO 11/15/24 22:00 11/16/24 05:07 20 MG Methylprednisolone Sodium Succinate 40 mg Q12H IV 11/16/24 09:00 11/16/24 09:04 40 MG Laboratory Results Laboratory Tests 11/15/24 05:02 11/16/24 05:54 Labs and/or images reviewed: Labs reviewed by me, Image(s) reviewed by me Assessment/Plan Assessment/Plan Impression: -AFib with RVR -acute hypoxic respiratory failure -essential tremors -PE ruled out -history of DVT -chronic kidney disease stage IIIA -dyslipidemia Plan: Events: Patient reports improvement with CC symptoms. Continue current treatment. -echocardiogram: Results reviewed -antitussives -restart propranolol -continue Eliquis -continue antibiotic therapy with Rocephin and azithromycin -bronchodilators -repeat labs in a.m. Total time spent with patient discussing and formulating plan of care: 35 minutes. This medical document was created using an electronic medical record system with [employer] dictation system. Although this document has been carefully reviewed, there may still be some phonetic and typographical errors. These areas are purely typographical due to imperfections of the software programs, and do not reflect any compromise in the patient's medical care. Plan discussed with: Patient, Other (RN) My Orders Orders - LANCE KING [employer] Procedure Category Date Status Time Albuterol Medneb PHA 11/15/24 In Process (Ventolin Medneb) 18:00 Ipratropium Medneb PHA 11/15/24 In Process (Atrovent Medneb) 18:00 Ceftriaxone 1gm/50ml PHA 11/16/24 In Process D5w (Rocephin) 09:00 Communication Order ORDERS 11/15/24 Transmitted 15:32 Propranolol Hcl PHA 11/15/24 In Process Tablet (Inderal 22:00 Methylprednisolone PHA 11/16/24 In Process Sod Succ (Solu Medrol 09:00 Date of Service: Nov 16, 2024 Billing Provider: LANCE KING NP Common Visit Codes: [id number] INP/OBS CARE(HIGH) Consultation Codes: [id number] CONSULT <45MIN LANCE KING NP Nov 16, 2024 13:19
--- NOTE | 2024-11-16 13:43 | ECG ---
[facility] Test Date: 2024-11-15 Test Time: 02:04:11 Pat Name: ANGIE MENDOZA Department: ER Room: 0290T A Gender: F Order Processor: [id number] : [id number] Requested By: MORENA FARRIS Order Number: [id number] Reading MD: Edwin Rodriguez Measurements Intervals [place] Rate: 113 P: 0 SD: 0 QRS: 82 QRSD: 116 T: 9 QT: 347 QTc: 476 Interpretive Statements Sinus tachycardia with PACs LVH with secondary repolarization abnormality Anterior infarct, old Electronically Signed On 11-17-2024 19:08:16 PDT by Edwin Rodriguez Please click the below link to view image of tracing.
[2024-11-17] VITALS (14 sets, daily range): BP systolic 104–130; BP diastolic 38–58; PULSE 50–75; RESP 14–20; TEMP 97.9–98.9; O2SAT 93–100
[2024-11-17 06:51] LABS: Basophils # (auto) 0 10 ^3/uL (0-0.2); Basophils % (auto) 0.1 % (0.0-2.0); Eosinophils # (auto) 0 10 ^3/uL (0-0.8); Hematocrit 35.3 % (36.0-46.0); Hemoglobin 12.1 g/dL (12.2-16.2); Lymphocytes # (auto) 0.3 10 ^3/uL (0.4-5.4); Lymphocytes % (auto) 5.9 % (10.0-50.0); Mean Corpuscular Hemoglobin 31.8 pg (28.0-32.0); Mean Corpuscular Hgb Conc. 34.3 g/dL (32.0-36.0); Mean Corpuscular Volume 92.8 fL (80.0-100.0); Monocytes # (auto) 0.1 10 ^3/uL (0-1.3); Monocytes % (auto) 1.7 % (0.0-12.0); Neutrophils # (auto) 5.4 10 ^3/uL (1.6-8.6); Neutrophils % (auto) 92.3 % (37.0-80.0); Platelet Count (auto) 190 10^3/uL (140-450); Red Cell Distribution Width 13.7 % (11.8-14.3); White Blood Cell 5.8 10^3/uL (4.4-10.8)
[2024-11-17 07:06] LABS: Anion Gap 9 (5-15); Carbon Dioxide 25 mmol/L (20-31); Chloride 107 mmol/L (98-107); Potassium 4.3 mmol/L (3.5-5.1); Sodium 141 mmol/L (136-145)
[2024-11-17 07:07] LABS: Calcium 9.1 mg/dL (8.7-10.4)
[2024-11-17 07:12] LABS: BUN/Creatinine Ratio 36.2 (10.0-20.0)
[2024-11-17 07:14] LABS: Blood Urea Nitrogen 47 mg/dL (9-23); Glucose 153 mg/dL (74-106)
--- NOTE | 2024-11-17 15:20 | DVHPN2 ---
Subjective Patient reports that her cough has improved Reviewed: Care Plan, H&P, Labs, Medications Changes from previous H/P or p: No Changes General: Per HPI Objective Vitals Vital Signs Date Time Temp Pulse Resp B/P (MAP) Pulse Ox O2 Delivery O2 Flow Rate FiO2 11/17/24 14:49 64 123/44 11/17/24 13:00 98.4 20 97 98.4 11/17/24 11:29 Nasal Cannula* 2 28 Intake/Output Intake and Output 11/17/24 06:59 Intake Total 720 ml Balance 720 ml Intake Oral 420 ml IV Total 300 ml # Voids 4 # Bowel Movements 2 General Appearance: Alert, Oriented X3, Cooperative, No acute distress, mild distress HEENT: Atraumatic, PERRLA Lungs: Clear to auscultation, Normal air movement Cardiovascular: Normal S1, Normal S2 Abdomen: Normal bowel sounds, Soft, No tenderness, No hepatospenomegaly Back: Flank Tenderness, Midline Tenderness Musculoskeletal: Normal sensory function Extremities: No clubbing, No cyanosis, No edema, Normal pulses, No tenderness/swelling Neuro: Normal gait, Normal speech, Cranial nerves 3-12 NL, Other (Tremors) Skin: Dry, Intact Psych/Mental Status: Mental status NL, Mood NL Medications Current Medications Medications Dose Ordered Sig/Christelle Route Start Time Stop Time Status Last Admin Dose Admin Azithromycin 250 ml @ 125 mls/hr DAILY IV 11/16/24 10:00 11/17/24 09:58 125 MLS/HR Albuterol 2.5 mg Q6HPRN PRN NEB 11/15/24 04:15 UNV Losartan Potassium 50 mg DAILY PO 11/15/24 10:00 11/17/24 09:57 50 MG Hydrochlorothiazide 12.5 mg DAILY PO 11/15/24 10:00 11/17/24 09:58 12.5 MG Apixaban 5 mg BID PO 11/15/24 10:00 11/17/24 09:55 5 MG Atorvastatin Calcium 10 mg HS PO 11/15/24 22:00 11/16/24 21:30 10 MG Guaifenesin/ Dextromethorphan 10 ml Q4HP PRN PO 11/15/24 04:15 11/16/24 21:36 10 ML Ondansetron HCl 4 mg Q4HP PRN IV 11/15/24 04:15 Acetaminophen 650 mg Q6HP PRN PO 11/15/24 04:15 Nitroglycerin 0.4 mg Q5MINP PRN SL 11/15/24 04:15 Morphine Sulfate 2 mg Q30M PRN IV 11/15/24 04:15 Albuterol 2.5 mg Q6HWA NEB 11/15/24 18:00 11/17/24 11:29 2.5 MG Ipratropium [place] 0.5 mg Q6HWA NEB 11/15/24 18:00 11/17/24 11:29 0.5 MG Ceftriaxone Sodium 50 ml @ 100 mls/hr DAILY@09 IV 11/16/24 09:00 11/17/24 09:58 100 MLS/HR Propranolol HCl 20 mg TID PO 11/15/24 22:00 11/17/24 14:49 20 MG Methylprednisolone Sodium Succinate 40 mg Q12H IV 11/16/24 09:00 11/17/24 09:55 40 MG Laboratory Results Laboratory Tests 11/17/24 05:25 Chemistry Test 11/17/24 05:25 Calcium Level 9.1 mg/dL (8.7-10.4) Labs and/or images reviewed: Labs reviewed by me, Image(s) reviewed by me Assessment/Plan Assessment/Plan Impression: -AFib with RVR -acute hypoxic respiratory failure -essential tremors -PE ruled out -history of DVT -chronic kidney disease stage IIIA -dyslipidemia Plan: Events: Patient reports improvement with her dyspnea. O2 requirements decreased. Cough improving. -echocardiogram: Results reviewed -antitussives -restart propranolol -continue Eliquis -continue antibiotic therapy with Rocephin and azithromycin -bronchodilators -reassess for discharge in a.m. Total time spent with patient discussing and formulating plan of care: 35 minutes. This medical document was created using an electronic medical record system with [employer] dictation system. Although this document has been carefully reviewed, there may still be some phonetic and typographical errors. These areas are purely typographical due to imperfections of the software programs, and do not reflect any compromise in the patient's medical care. Plan discussed with: Patient, Other (RN) Date of Service: Nov 17, 2024 Billing Provider: LANCE KING [employer] Common Visit Codes: [id number] INP/OBS CARE(HIGH) LANCE KING NP Nov 17, 2024 15:20
[2024-11-18] VITALS (9 sets, daily range): BP systolic 95–137; BP diastolic 48–78; PULSE 50–70; RESP 16–19; TEMP 36.5; O2SAT 97–99
--- NOTE | 2024-11-18 00:46 | DVHSR ---
APPROVED REPORT EXAM: Two-dimensional and M-mode echocardiogram with Doppler and color Doppler. Blood Pressure: 127/49 mmHg INDICATION afib w/ RVR RISK FACTORS Height: 5'0, Weight: 123 DIMENSIONS LVDd4.3 (3.8-5.7cm)LA (2D)3.1 (1.9-4.0cm)Aortic Root2.9 (2.0-3.7cm) LVDs3.2 (2.5-4.0cm)LA (MM) (1.9-4.0cm)Aortic Cusp Exc1.0 (1.5-2.0cm) EF (%) 50.0 (55-70%)Rt. Atrium3.4 (1.9-4.0cm)Asc. Aorta2.5 cm IVSd1.0 (0.7-1.1cm)RV (D)3.7 (1.8-2.4cm) PWd0.9 (0.7-1.1cm) Mitral Valve MitralMitral Stenosis E wave0.61m/sMV Mean GR.mmHg A wave1.11m/sMV Peak GR.82mmHg E/A ratio0.52D MVAcm2 DECEL [id number] 1/2 [place] Aortic Valve Aortic ValveAortic Stenosis V10.75m/Belle Mean GR.7mmHg V21.62m/Belle Peak GR.11mmHg LVOT Diameter1.8 (1.8-2.4cm)Doppler AVA1.18cm2 Pulmonic Valve V21.05m/s Tricuspid Valve TR Velocity2.38m/s [id number] Conclusion 1. MILD LVH AND MILD LV DIASTOLIC DYSFUNCTION 2. LV EF IS 60% AND IS NORMAL 3. MODERATELY CALCIFIED AORTIC LEAFLETS 4. MILD MR AND AI 5. NORMAL RV FUNCTION 6. NO EFFUSION
[2024-11-18] MEDS: methylPREDNISolone SOD SUCC 125 MG/2 ML VL IV SCH (09:16)
[2024-11-18] MEDS: PROPRANOLOL HCL 20 MG TAB PO SCH (09:17)
[2024-11-18] MEDS ORDERED: DOXY100C79 PO (11:59)
--- NOTE | 2024-11-18 12:58 | DVHDS2 ---
Discharge Summary Date of Admission Nov 15, 2024 at 04:11 Date of Discharge: Nov 18, 2024 Admitting Diagnosis Acute hypoxic respiratory failure Labs/Diagnostic Data: Laboratory Results Test 11/17/24 05:25 11/16/24 05:54 11/15/24 07:07 11/15/24 02:29 White Blood Count 5.8 10^3/uL (4.4-10.8) Red Blood Count 3.80 10^6/uL (4.0-5.20) Hemoglobin 12.1 g/dL (12.2-16.2) Hematocrit 35.3 % (36.0-46.0) Mean Corpuscular Volume 92.8 fL (80.0-100.0) Mean Corpuscular Hemoglobin 31.8 pg (28.0-32.0) Mean Corpuscular Hemoglobin Concent 34.3 g/dL (32.0-36.0) Red Cell Distribution Width 13.7 % (11.8-14.3) Platelet Count 190 10^3/uL (140-450) Mean Platelet Volume 8.5 fL (6.9-10.8) Neutrophils (%) (Auto) 92.3 % (37.0-80.0) Lymphocytes (%) (Auto) 5.9 % (10.0-50.0) Monocytes (%) (Auto) 1.7 % (0.0-12.0) Eosinophils (%) (Auto) 0.0 % (0.0-7.0) Basophils (%) (Auto) 0.1 % (0.0-2.0) Neutrophils # (Auto) 5.4 10 ^3/uL (1.6-8.6) Lymphocytes # (Auto) 0.3 10 ^3/uL (0.4-5.4) Monocytes # (Auto) 0.1 10 ^3/uL (0-1.3) Eosinophils # (Auto) 0 10 ^3/uL (0-0.8) Basophils # (Auto) 0 10 ^3/uL (0-0.2) Nucleated Red Blood Cells 0.0 % Sodium Level 141 mmol/L (136-145) Potassium Level 4.3 mmol/L (3.5-5.1) Chloride Level 107 mmol/L (98-107) Carbon Dioxide Level 25 mmol/L (20-31) Anion Gap 9 (5-15) Blood Urea Nitrogen 47 mg/dL (9-23) Creatinine 1.30 mg/dL (0.550-1.02) Glomerular Filtration Rate Calc 42 mL/min (>90) BUN/Creatinine Ratio 36.2 (10.0-20.0) Serum Glucose 153 mg/dL (74-106) Calcium Level 9.1 mg/dL (8.7-10.4) Erythrocyte Sedimentation Rate 39 mm/hr (0-20) C-Reactive Protein High Sensitivity 0.75 mg/dL (<1.0) Influenza Type A Antigen Negative (Negative) Influenza Type B Antigen Negative (Negative) SARS-CoV-2 Antigen (Rapid) Negative (NEGATIVE) Blood Gas Specimen Type Arterial Blood Gas Sample Site Left radial Blood Gas Patient Temperature 37.0 Arterial Blood Date Drawn [id number] Arterial Blood pH 7.411 (7.350-7.450) Arterial Blood Partial Pressure CO2 33.4 mmHg (32.0-45.0) Arterial Blood Partial Pressure O2 88.8 mmHg (83.0-108.0) Arterial Blood HCO3 20.7 mmol/L (21.0-28.0) Arterial Blood Oxygen Saturation 96.7 % (94.0-98.0) Arterial Blood Base Excess -3.0 mmol/L (-2.0-3.0) Arterial Blood Oxyhemoglobin 95.5 % (94.0-98.0) Arterial Blood Carboxyhemoglobin 0.7 % (0.5-1.5) Arterial Blood Methemoglobin 0.5 % (0.0-1.5) Noel Test Modified Blood Gas Total Hemoglobin 13.70 g/dL (12.0-16.0) Blood Gas Liter Flow 4.00 Blood Gas Modality Nasal cannula FiO2 % 36.0 Test 11/15/24 02:25 11/15/24 02:09 Lactic Acid Level 1.8 mmol/L (0.4-2.0) Prothrombin Time 10.3 sec (9.3-11.8) Prothrombin Time INR 0.97 (0.9-1.15) Activated Partial Thromboplast Time 25.8 SEC (24.5-34.5) D-Dimer, Quantitative 0.73 mg/L FEU (0.0-0.49) Total Bilirubin 0.5 mg/dL (0.2-1.0) Aspartate Amino Transferase (AST) 21 U/L (13-40) Alanine Aminotransferase (ALT) 12 U/L (7-40) Alkaline Phosphatase 75 U/L (46-116) Troponin I High Sensitivity 32 ng/L (</=34) B-Type Natriuretic Peptide 97.42 pg/mL (0-100) Total Protein 7.1 g/dL (5.7-8.2) Albumin 4.5 g/dL (3.2-4.8) Other Laboratory Tests 11/17/24 05:25 Brief Hx & Hospital Course: History of Present Illness 79-year-old female presents for evaluation of shortness for breath. Patient reports a one day history of severe shortness for breath with associated nonproductive cough. Denies fever or chills. No chest pain or palpitations. No other acute complaints. Course of hospitalization: Patient was started on IV antibiotic therapy with Rocephin and azithromycin. Patient was continued with O2 supplementation at 2-4 liters/minute. Patient is currently saturating 94% on room air. Patient was also started on mucolytics as well as bronchodilators. Patient was chief complaint of shortness of breath and cough has resolved. Patient will be discharged home and is instructed to follow up with her PCP in 1-2 weeks. She will be continued on antibiotic therapy with doxycycline 100 mg p.o. b.i.d. x7 days. Medication reconciliation was performed, for which the patient was to continue all previous home medications. Physical examination General: Alert and Oriented x3. No acute distress. Well-nourished. Eyes: EOMI. Anicteric. HENT: Moist mucous membranes. Lungs: Clear to auscultation bilaterally. No accessory muscle use. Cardiovascular: Regular rate and rhythm. No murmur. No JVD. Abdomen: Soft, non-tender and non-distended. No palpable masses. Extremities: No edema. Non-tender. Skin: No rashes or lesions. Warm. Neurologic: No focal neurological deficits. CN II-XII grossly intact, but not individually tested. Essential tremors Psychiatric: Cooperative. Appropriate mood and affect. Total time spent with patient discussing and formulating plan of care: 35 minutes. This medical document was created using an electronic medical record system with [employer] dictation system. Although this document has been carefully reviewed, there may still be some phonetic and typographical errors. These areas are purely typographical due to imperfections of the software programs, and do not reflect any compromise in the patient's medical care. Condition at Discharge: Fair Final Diagnosis/Problems List Acute hypoxic respiratory failure Secondary diagnosis: -AFib with RVR -acute hypoxic respiratory failure -essential tremors -PE ruled out -history of DVT -chronic kidney disease stage IIIA -dyslipidemia Discharge Disposition: Home Discharge Instruct/Medications Diet: Regular Activity: No Restrictions, As Tolerated Follow Up/Referral: Follow up with PCP in 1-2 weeks Medications: Doxycycline 100 mg p.o. b.i.d. x7 days Continue all previous home medications 36 Discharge Statement: "Patient was advised to return to the ER or call 911 if any headaches, dizziness, shortness of breath, chest pain, abdominal pain, bleeding, fevers, or worsening of medical condition. Patient was counseled about treatment plan, medications, possible side effects, patientverbalized understanding. All questions were answered to the best of my ability. This discharge took greater then 30 minutes in planning, reviewing documentation, counseling the patient, and discussing with other team members." ASSESSMENT ASSESSMENT Assessment Acute hypoxic respiratory failure Date of Service: Nov 18, 2024 Billing Provider: LANCE KING NP Common Visit Codes: 42303-LFE/OBS DISCH DAY >30min LANCE KING NP Nov 18, 2024 12:58
== END 2024-11-18 15:50 | disposition home or self-care (01) | DRG 189 ==
LOC: ER 01:45 → OVERFLOW 04:11 → TELE-WESTW 17:45
PROVIDERS: ADMIT Nurse Practitioner Acute Care; ATTEND Nurse Practitioner Acute Care
DX: J96.01 Acute respiratory failure with hypoxia (principal); N17.9 Acute kidney failure, unspecified; J20.9 Acute bronchitis, unspecified; N18.31 Chronic kidney disease, stage 3a; I12.9 Hypertensive chronic kidney disease with stage 1 through stage 4 chronic kidney disease, or unspecified chronic kidney disease; E78.5 Hyperlipidemia, unspecified; R79.89 Other specified abnormal findings of blood chemistry; Z20.822 Contact with and (suspected) exposure to COVID-19; G25.0 Essential tremor; I48.91 Unspecified atrial fibrillation; Z79.899 Other long term (current) drug therapy; Z79.01 Long term (current) use of anticoagulants; Z86.718 Personal history of other venous thrombosis and embolism; Z79.1 Long term (current) use of non-steroidal anti-inflammatories (NSAID); Z79.2 Long term (current) use of antibiotics
CPT/HCPCS: 36415; 36600; 71045; 71275; 80048; 80053; 82805; 83605; 83880; 84484; 85025; 85379; 85610; 85652; 85730; 86141; 87426; 87804; 93005; 93306; 94640; G0378

== ENCOUNTER 2025-05-09 08:24 | Outpatient (CLI) | payer MEDICARE, MEDICAID ==
[~2025-05-09 08:24] MED LIST changes: +DOXY100C79 PO
[2025-05-09 09:27] LABS: Hematocrit 37.8 % (36.0-46.0); Hemoglobin 12.8 g/dL (12.2-16.2); Mean Corpuscular Hemoglobin 31.0 pg (28.0-32.0); Mean Corpuscular Volume 91.6 fL (80.0-100.0); Nucleated Red Blood Cells % 0.1 %
[2025-05-09 09:47] LABS: Alanine Aminotransferase 12 U/L (7-40); Albumin 4.3 g/dL (3.2-4.8); Alkaline Phosphatase 75 U/L (46-116); Anion Gap 10 (5-15); BUN/Creatinine Ratio 21.8 (10.0-20.0); Bilirubin, Total 0.6 mg/dL (0.2-1.0); Calcium 9.5 mg/dL (8.7-10.4); Carbon Dioxide 26 mmol/L (20-31); Chloride 104 mmol/L (98-107); Cholesterol 185 mg/dL (< 200); Glucose 100 mg/dL (74-106); HDL Cholesterol 58 mg/dL (40-59); Potassium 3.9 mmol/L (3.5-5.1); Sodium 140 mmol/L (136-145); Total Protein 7.2 g/dL (5.7-8.2); Triglycerides 119 mg/dL (< 150)
[2025-05-09 09:49] LABS: Blood Urea Nitrogen 29 mg/dL (9-23)
== END 2025-05-09 17:00 | disposition home or self-care (01) ==
LOC: LAB 08:24
PROVIDERS: ATTEND Internal Medicine
DX: E53.8 Deficiency of other specified B group vitamins (principal); I82.412 Acute embolism and thrombosis of left femoral vein; R25.1 Tremor, unspecified; Z79.899 Other long term (current) drug therapy
CPT/HCPCS: 36415; 80053; 80061; 82043; 82306; 83036; 84439; 84443; 85025